=== PATIENT | female | born 1985 | race Caucasian/White ===

== ENCOUNTER → 2016-08-25 | Outpatient (CLI) | payer OTHER ==
[~2016-08-25] MED LIST: CEFD300C2 PO; HYDR-3240 PO; IBUP-1222 PO; PNV1TABL11 PO; PREN1TAB27 PO
== END | disposition home or self-care (01) ==
LOC: CFH 16:30
PROVIDERS: ATTEND Family Medicine
DX: J20.9 Acute bronchitis, unspecified (principal)
CPT/HCPCS: 71020

== ENCOUNTER 2020-08-26 16:19 | Outpatient (CLI) | payer OTHER ==
[~2020-08-26] VITALS: Ht 162.6 cm; Wt 118.1 kg
[~2020-08-26 16:19] MED LIST changes: -CEFD300C2 PO; +CEFD300C37 PO; +HYDR-2214 PO; -HYDR-3240 PO
== END 2020-08-26 17:47 | disposition home or self-care (01) ==
LOC: LDOP 16:19
PROVIDERS: ATTEND Obstetrics & Gynecology Maternal & Fetal Medicine
DX: O09.93 Supervision of high risk pregnancy, unspecified, third trimester (principal); Z3A.37 37 weeks gestation of pregnancy
CPT/HCPCS: 59025; 76819

== ENCOUNTER → 2020-08-29 | Outpatient (CLI) | payer OTHER | END | disposition home or self-care (01) | LOC: STAR 10:27 | PROVIDERS: ATTEND Obstetrics & Gynecology | DX: Z20.822 Contact with and (suspected) exposure to COVID-19 (principal) | CPT/HCPCS: U0003 ==

== ENCOUNTER 2020-09-01 04:53 | Inpatient (IN) | payer OTHER ==
[~2020-09-01] VITALS: Ht 162.6 cm; Wt 117.2 kg
[2020-09-01 04:55] VITALS: BP 119/73
[2020-09-01] MEDS ORDERED: OXYTOCIN 30U/ 0.9% NaCL 500ML 500 ML ONE (05:13)
[2020-09-01] MEDS: LACTATED RINGERS 1,000 ML IV SCH ×7 (05:25→23:57)
[2020-09-01] MEDS ORDERED: TERBUTALINE 1 MG/ML, 1ML SQ PRN (05:30)
[2020-09-01] MEDS ORDERED: FENTANYL PF 100 MCG/2ML IVPush PRN (05:30)
[2020-09-01] MEDS ORDERED: OXYTOCIN 30U/ 0.9% NaCL 500ML 500 ML IV PRN (05:30)
[2020-09-01] MEDS ORDERED: PENICILLIN GK 5,000,000 UNITS in DEXTROSE 5% 100 ML IVPB ONE (05:30)
[2020-09-01] MEDS ORDERED: FENTANYL PF 100 MCG/2ML IV PRN (05:30)
[2020-09-01] MEDS ORDERED: OXYTOCIN 30U/ 0.9% NaCL 500ML 500 ML IV ONE (05:30)
[2020-09-01] MEDS ORDERED: TERBUTALINE 1 MG/ML, 1ML IVPush PRN (05:30)
[2020-09-01] MEDS ORDERED: ONDANSETRON 2MG/ML, 2ML IVPush PRN (05:30)
[2020-09-01] MEDS ORDERED: LIDOCAINE 1%, 20ML ONE (05:41)
[2020-09-01] MEDS ORDERED: MISOPROSTOL 200 MCG TABLET ONE (05:41)
[2020-09-01 05:46] LABS: BASOPHILS % (AUTO) 0 % (0-1); EOSINOPHILS % (AUTO) 2 % (1-7); LYMPHOCYTES % (AUTO) 23 % (22-44); MEAN CORPUSCULAR HEMOGLOBIN 28.9 pg (27.0-34.8); MEAN CORPUSCULAR HGB CONC 34.2 g/dL (32.4-35.8); MEAN PLATELET VOLUME 10.6 fL (7.4-10.4); MONOCYTES % (AUTO) 6 % (2-9); NEUTROPHILS % (AUTO) 70 % (42-75); PLATELET COUNT 132 x10^3/uL (130-400); RED BLOOD COUNT 3.89 x10^6/uL (3.82-5.3); RED CELL DISTRIBUTION WIDTH 15.9 % (9.6-15.2)
[2020-09-01 05:52] LABS: MD NO
[2020-09-01] MEDS: PENICILLIN GK 2,500,000 UNITS in DEXTROSE 5% 100 ML IVPB SCH ×2 (09:28→13:16)
[2020-09-01] MEDS ORDERED: INSU100I34 SQ-INSULIN (12:22)
[2020-09-01] MEDS ORDERED: INSU100V SQ-INSULIN (12:22)
[2020-09-01] MEDS ORDERED: NEWBORN KIT ONE (14:35)
[2020-09-01] MEDS ORDERED: OXYcodone/APAP 5/325MG TABLET PO PRN (15:00)
[2020-09-01] MEDS ORDERED: ONDANSETRON 2MG/ML, 2ML IV PRN (15:00)
[2020-09-01] MEDS ORDERED: DIPH,PERTUSS(ACELL),TET VAC/PF NC IM-VACC PRN (15:00)
[2020-09-01] MEDS ORDERED: METHYLERGONOVINE 0.2 MG/ML IM PRN (15:00)
[2020-09-01] MEDS ORDERED: SIMETHICONE 80 MG CHEW TAB PO PRN (15:00)
[2020-09-01] MEDS ORDERED: MISOPROSTOL 200 MCG TABLET PR PRN (15:00)
[2020-09-01] MEDS ORDERED: CARBOPROST TROMETHAMINE 250 MCG/ML, 1ML IM PRN (15:00)
[2020-09-01] MEDS ORDERED: ACETAMINOPHEN 325 MG TABLET PO PRN ×2 (15:00)
[2020-09-01] MEDS: IBUPROFEN 600 MG TABLET PO PRN (15:16)
[2020-09-01] MEDS: OXYTOCIN 30U/ 0.9% NaCL 500ML 500 ML IV SCH ×4 (16:10→23:57)
[2020-09-01 16:45] VITALS: BP 124/80
[2020-09-01 19:35] VITALS: BP 119/81
[2020-09-01] MEDS: OXYcodone/APAP 5/325MG TABLET PO PRN ×2 (19:42→23:59)
[2020-09-01] MEDS: DOCUSATE 100 MG CAPSULE PO PRN (19:42)
[2020-09-01 22:55] LABS: BASOPHILS % (AUTO) 1 % (0-1); EOSINOPHILS % (AUTO) 0 % (1-7); LYMPHOCYTES % (AUTO) 21 % (22-44); MEAN CORPUSCULAR HEMOGLOBIN 28.6 pg (27.0-34.8); MEAN CORPUSCULAR HGB CONC 33.5 g/dL (32.4-35.8); MEAN PLATELET VOLUME 11.1 fL (7.4-10.4); MONOCYTES % (AUTO) 6 % (2-9); NEUTROPHILS % (AUTO) 73 % (42-75); PLATELET COUNT 145 x10^3/uL (130-400); RED BLOOD COUNT 3.64 x10^6/uL (3.82-5.3); RED CELL DISTRIBUTION WIDTH 16.3 % (9.6-15.2)
[2020-09-01 22:57] LABS: MD NO
[2020-09-02 00:03] VITALS: BP 115/68
[2020-09-02 03:09] VITALS: BP 104/69
[2020-09-02] MEDS: OXYTOCIN 30U/ 0.9% NaCL 500ML 500 ML IV SCH (03:11)
[2020-09-02] MEDS: OXYcodone/APAP 5/325MG TABLET PO PRN ×2 (04:45→19:16)
[2020-09-02 07:16] VITALS: BP 109/71
[2020-09-02] MEDS: IBUPROFEN 600 MG TABLET PO PRN ×2 (09:07→19:16)
[2020-09-02] MEDS: PRENATAL VIT/IRON/FA 1 EACH TABLET PO SCH (09:07)
[2020-09-02] MEDS: DOCUSATE 100 MG CAPSULE PO PRN ×2 (09:07→19:16)
[2020-09-02 12:38] VITALS: BP 119/75
[2020-09-02 20:00] VITALS: BP 100/64
[2020-09-03] MEDS: LACTATED RINGERS 1,000 ML IV SCH (05:30)
[2020-09-03 08:30] VITALS: BP 128/72
[2020-09-03] MEDS: PRENATAL VIT/IRON/FA 1 EACH TABLET PO SCH (08:54)
[2020-09-03] MEDS: IBUPROFEN 600 MG TABLET PO PRN (08:54)
[2020-09-03] MEDS: DOCUSATE 100 MG CAPSULE PO PRN (08:54)
== END 2020-09-03 14:20 | disposition home or self-care (01) | DRG 807 ==
LOC: LDIP 04:53 → 2NW 17:01
PROVIDERS: ADMIT Obstetrics & Gynecology Maternal & Fetal Medicine; ATTEND Obstetrics & Gynecology Maternal & Fetal Medicine
PROC: 10E0XZZ Delivery of Products of Conception, External Approach (ICD-10-PCS; principal; 2020-09-01)
PROC: 3E033VJ Introduction of Other Hormone into Peripheral Vein, Percutaneous Approach (ICD-10-PCS; 2020-09-01)
DX: O24.424 Gestational diabetes mellitus in childbirth, insulin controlled (principal); Z37.0 Single live birth; Z3A.38 38 weeks gestation of pregnancy
CPT/HCPCS: 82962; 85025; 86592; 86850; 86900; G0378; J2540; J3010; J2590; J7120